=== PATIENT | female | born 2000 | race Caucasian/White ===

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

== ENCOUNTER → 2019-11-05 | Outpatient (CLI) | payer BC, OTHER ==
--- NOTE | 2020-01-01 16:28 | ECHO ---
DATE OF PROCEDURE: 11/05/2019 Age: Gender: Female Height: 170 cm Weight: 73 kg. REFERRING PHYSICIAN: Dr. Sevilla INDICATION: Mitral valve prolapse. MEASUREMENTS: IVS 0.9 Left ventricle (LV) 4.5. LVPW 0.7 LA 2.8. Aorta 2.2 IVC 1.5 Mitral E-wave velocity 85, A-wave 43, E-prime septal 10.4, E-prime lateral 13.7 FINDINGS: The study is of good technical quality. The patient is in sinus rhythm. Normal LV size, systolic and diastolic function. Estimated left ventricular ejection fraction (LVEF) 60% to 65%. Normal RV size and systolic function. Both atria appear normal. All four cardiac valves are reasonably well seen and appear normal. No pericardial effusion is noted. Inferior vena cava is of normal size. Aortic root, visualized segment of abdominal aorta and aortic arch all appear normal. Doppler interrogation reveals competent aortic and mitral valves. There is trace tricuspid insufficiency. Quality of TR jet though was not sufficient to estimate pulmonary artery pressure. Pulmonic valve is also functionally competent. Mitral inflow pattern and tissue Doppler imaging of mitral annulus reveal normal diastolic functioning left ventricle. CONCLUSIONS: 1. Normal left ventricle (LV) size, systolic and diastolic function. 2. No valvular disease. 3. Normal central venous pressure, unable to estimate pulmonary artery pressure. 4. Normal echocardiogram. [facility]
== END ==
LOC: M EKG 10:30 → M CARPUL 10:30
PROVIDERS: ATTEND Family Medicine
DX: I34.1 Nonrheumatic mitral (valve) prolapse (principal)

== ENCOUNTER → 2023-11-26 | Outpatient (CLI) | payer BC | LOC: M WHC 10:58 | PROVIDERS: ATTEND Physician Assistant | DX: M25.562 Pain in left knee (principal) ==